=== PATIENT | male | born 1955 | race Caucasian/White ===

== ENCOUNTER 2017-09-24 04:55 | Day surgery (SDC) | payer MEDICARE ==
[2017-09-23 13:35] LABS: BASOPHILS 0.2 % (0-2); EOSINOPHILS 3.4 % (0-7); HEMATOCRIT 48.5 % (42.0-54.0); HEMOGLOBIN 16.9 g/dL (13.5-17.5); IMMATURE GRANULOCYTES 0.4 % (0-5); MCHC 34.8 g/dL (31.0-37.0); MCV 94.7 fL (80.0-100.0); MEAN PLATELET VOLUME 9.9 fL (7.4-10.4); MONOCYTES 9.2 % (2-11); NEUTROPHILS 58.8 % (40-80); PLATELET COUNT 160 10x3/uL (130-400); RBC 5.12 10x6/uL (4.20-6.10); RDW 13.3 % (11.5-14.5); WBC 9.4 10x3/uL (4.8-10.8)
[2017-09-23 13:45] LABS: APTT 25.8 SECONDS (22.8-39.4); INR 1.01 (0.85-1.17); PROTIME 13.1 SECONDS (11.6-15.0)
[2017-09-23 13:49] LABS: CALC OSMOLALITY 277 mosm/kg (275-300); CARBON DIOXIDE 26.5 mmol/L (21.0-32.0); CHLORIDE - SERUM 103 mmol/L (98-107); CREATININE - SERUM 0.9 mg/dL (0.6-1.3); GLUCOSE 96 mg/dL (74-106); SODIUM 139 mmol/L (136-145); UREA NITROGEN 13 mg/dL (7-18); eGFR NON AFRICAN AMERICAN > 90 mL/min (90-120)
[~2017-09-24] VITALS: Ht 185.4 cm; Wt 111.1 kg
[~2017-09-24 04:55] MED LIST: ASCORBIC ACID500 MG PO; GLUCOSAMINE HC500 MG PO; NEXIUM40 MG PO; PROTONIX40 MG PO; VITAMIN B-121000 MCG PO; ZYLOPRIM300 MG PO; [UNRECOGNIZED DRUG - OTHER] OR
[2017-09-24 05:52] VITALS: BP 154/92; Ht 185.4 cm; Wt 111.1 kg
[2017-09-24] MEDS ORDERED: PERCOCET 7.5/321 TAB PO (09:33)
[2017-09-24] MEDS ORDERED: ZOFRAN ODT4 MG/UDTAB PO (09:34)
--- NOTE | 2017-09-24 11:42 | NUR ---
1116 IV DC WITH CATHER TIP INTACT
--- NOTE | 2017-09-26 07:43 | OP ---
PATIENT NAME: IGNACIO HARRELL MEDICAL RECORD: [id number] :55 LOCATION:[facility] ADMISSION DATE: SURGEON: WILLY LEWIS DO DATE OF OPERATION: 09/24/2017 DATE OF SURGERY: 09/24/2017 PROCEDURE PERFORMED: Left shoulder arthroscopy with distal clavicle excision, subacromial decompression, mini open biceps tenodesis and rotator cuff repair. PREOPERATIVE DIAGNOSES: SLAP tear type 2, subacromial impingement, rotator cuff tear and acromioclavicular joint arthritis. POSTOPERATIVE DIAGNOSES: SLAP tear type 2, subacromial impingement, rotator cuff tear and acromioclavicular joint arthritis. INDICATIONS: Mr. Harrell is a 62-year-old male that presented to my office sometime ago with shoulder pain. He tried nonoperative treatment for a period of time including injections and he was tired of dealing with the pain. He came to me approximately a week ago and decided he wanted something done surgically, so he is aware of the risks and benefits of the procedure and verbally consented for the procedure. SURGEON: Willy Lewis DO COMPLICATIONS: None. BLOOD LOSS: Minimal. DESCRIPTION OF PROCEDURE: The patient was given a block in the preoperative area by anesthesia and taken to the operative suite, laid in supine position, given general anesthetic, then placed in the right lateral decubitus position and an axillary roll was placed on the axilla. The left arm was prepped and draped in a sterile fashion. Timeout was performed, everyone was in agreement with the correct side, site and patient. The patient was given clindamycin preoperatively. Once this was done, the shoulder joint was entered with 18-gauge spinal needle from the posterior portal and the shoulder joint itself was inflated with 60 mL of normal saline. The posterior portal was then made with an 11-blade scalpel and the trocar was entered into the shoulder joint itself. Once this was done, the camera was entered and a SLAP tear was seen as well as the rotator cuff tear. Bicep tenodesis was done. The inferior pouch of the shoulder was inspected for loose bodies, none were seen. There was a very small amount of arthritis in the shoulder joint itself. The rotator cuff tear was noted. After this inspection was done, the subscapularis tendon was inspected as well and not seen to have any complete tears. The scope was then taken out of the shoulder joint and taken to the subacromial space, debridement was done at that time. The acromion was cleaned off with the burner as well as the distal clavicle. A subacromial decompression was done at that time. Some of the acromion was removed as well as the distal clavicle opening up the AC joint at approximately 7 mm. After this was done, the anterior portal had been established previously from entering the shoulder joint in order to get the burner into do the biceps tenodesis. The distal clavicle excision was done through the anterior portal. The lateral portal had been established. Once the subacromial space was entered with an 18-gauge spinal needle, then an 11-blade scalpel. The lateral portal was then extended. The skin excision was extended OPERATIVE REPORT [id number] IGNACIO HARRELL approximately 3 cm. The deltoid fascia was carefully incised and then careful dissection was made down to the rotator cuff itself. The extensive bursa was noted and removed at that time over the tear. The tear was encountered. The greater tuberosity of the humerus was then burred down to the bleeding bone to have a good bed for healing for the rotator cuff repair and a single anchor was placed at the articular margin of the humerus. A FiberTape was used and a limb was placed anteriorly on the rotator cuff, supraspinatus as well as posteriorly and then pulled down to a lateral row having a nice rotator cuff repair that was noted and the anchor was put in. Once this was done, the wound was thoroughly irrigated and the portal sites were closed with 4-0 Monocryl inverted interrupted fashion. The deltoid fascia was closed with 0 Vicryl in a [id number] fashion and then the skin was closed with 2-0 Vicryl in an inverted interrupted fashion and a subcuticular running stitch with a 4-0 Monocryl was made. We then kathrin attention to the biceps tenodesis. An incision was made at the pec insertion and sterile dissection was made down to encounter the bicep tendon itself and the biceps tendon that had been tenotomized was removed. An Allis clamp was placed on it, was pulled out of the wound and then whipstitched with suture and then a button was placed on that suture. The drill guide was placed on the humerus and a drill hole was made into the humerus unicortical. This was done and the button was placed into that hole and then the bicep tendon was cinched down at that time, a free needle was used in one of the limbs of the sutures from the button and made through the bicep tendon as to place it on top of the humerus and tied down. Once this was tied down, the excess tendon and excess suture were cut. The wound was thoroughly irrigated and closed with 2-0 Vicryl and the skin in inverted interrupted fashion and a subcuticular stitch was ran on that part as well and Dermabond was placed over all these wounds. After this was done, Adaptic, 4 x 4s, ABD and Medipore tape were placed and the patient was placed into a Slingshot sling. The patient was awakened and taken to recovery in stable condition. TRANSINT:[id number] Voice Confirmation ID: [id number] DOCUMENT ID: [id number] WILLY LEWIS DO at 0743 CC: [id number] DICTATION DATE: 09/24/17940 NEWS CONTENT SPECIALIST: 09/24/[address] [facility] [place], [place] 09/24/17 [facility] [address] [place] [address]
== END 2017-09-24 11:45 | disposition home or self-care (01) ==
LOC: D.OPS 04:55 → D.PAN 10:15 → D.OPS 10:15
PROVIDERS: Anesthesiology
DX: S43.432A Superior glenoid labrum lesion of left shoulder, initial encounter (principal); M75.42 Impingement syndrome of left shoulder; M75.102 Unspecified rotator cuff tear or rupture of left shoulder, not specified as traumatic; M13.812 Other specified arthritis, left shoulder; Z01.812 Encounter for preprocedural laboratory examination; X58.XXXA Exposure to other specified factors, initial encounter

== ENCOUNTER → 2018-05-06 08:28 | Outpatient (CLI) | payer MEDICARE ==
[2017-09-24 05:52] VITALS: BMI 32.3
[~2018-05-06 08:28] MED LIST changes: +PERCOCET 7.5/321 TAB PO; +PRINIVIL20 MG PO; +ZOFRAN ODT4 MG/UDTAB PO
== END | disposition home or self-care (01) ==
LOC: D.RAD 08:28
DX: M25.511 Pain in right shoulder (principal); M25.512 Pain in left shoulder

== ENCOUNTER 2018-05-30 07:10 | Day surgery (SDC) | payer MEDICARE ==
[2018-05-29 11:00] LABS: HEMATOCRIT 50.9 % (42.0-54.0); HEMOGLOBIN 17.9 g/dL (13.5-17.5); MCH 32.8 pg (26.0-34.0); MCHC 35.2 g/dL (31.0-37.0); MCV 93.2 fL (80.0-100.0); MEAN PLATELET VOLUME 9.7 fL (7.4-10.4); RBC 5.46 10x6/uL (4.20-6.10); RDW 12.7 % (11.5-14.5); WBC 9.7 10x3/uL (4.8-10.8)
[~2018-05-30] VITALS: Ht 172.7 cm; Wt 113.4 kg
--- NOTE | ~2018-05-30 | OP ---
PATIENT NAME: IGNACIO BARKLEY MEDICAL RECORD: [id number] :55 LOCATION:[facility] ADMISSION DATE: SURGEON: GEO LEWIS DO DATE OF OPERATION: 05/30/2018 PROCEDURE PERFORMED: Left shoulder scope with mini open rotator cuff repair. PREOPERATIVE DIAGNOSIS: Left shoulder rotator cuff tear. POSTOPERATIVE DIAGNOSIS: Left shoulder rotator cuff tear. INDICATIONS: Mr. Barkley is a 63-year-old male who had his left shoulder rotator cuff done back in August. Approximately 8-10 weeks postop, he was cutting wood and lifting overhead and felt a pop in his shoulder and he sustained a retear of his rotator cuff, had pain since. He did try injections. Ultimately, we ended up getting an MRI with contrast that showed an 8-mm tear in the anterior cuff of the supraspinatus extending posteriorly. I had a long discussion with him and informed him that we could fix this, but he was aware that if he re-tore it could cause more problems. He knew he got back to doing things too quickly last time and we discussed that and he said he would not do that at this time. He is aware of the risks and benefits of the procedure including infection, bleeding, risk to structures including the axillary nerve, and need for further surgery, and he consented to the procedure. DESCRIPTION OF PROCEDURE: The patient received a block in the preoperative area. He was taken to the operative suite, laid in the right lateral recumbent position, given 900 mg of clindamycin preoperatively. After this was done, the left shoulder was prepped and draped in a sterile fashion. A timeout was performed. Everyone was in agreement with correct site, side, and patient. He had an LMA placed prior to prepping and draping. Once he was prepped and draped, an 18-gauge needle was used to find the joint and this was inflated with 60 mL normal saline. Then, the 11 blade scalpel was used to create the posterior portal and the trocar was then entered into the joint. After the trocar was entered into the joint, the camera was entered and careful inspection of the joint was made. The tear was seen at the supraspinatus anterior margin on the articular side. The infraspinatus appeared to be intact as well as the subscapularis. The bicep was previously tenodesed in the previous surgery. I then went to the subacromial space and the tear was seen there as well. The acromion was cleaned off to check for spurs as well as the distal clavicle that may have formed, but none were there and then the tear was encountered. It was cleaned up with a shaver and then we opened. The anterior portal was established when we were in the shoulder joint with an 11 blade and the trocar and then the lateral portal as well. Then, the open procedure began with a 15 blade over the lateral portal. Careful dissection was made down to the deltoid fascia. Deltoid fascia was incised. The deltoid was then bluntly and then the tear was encountered. Once the tear was encountered, the shaver was used to decorticate the greater tuberosity of the humerus just lateral to the articular margin to get a bleeding surface for healing. Two anchors were placed, 1 anterior and 1 posterior approximately a cm apart. The sutures were placed through the rotator cuff anteriorly and posteriorly with a scorpion. Once the scorpion was used, 2 of the sutures were tied down to get medial compression and then all the anchors were brought laterally and anterior and posterior anchor were brought from the lateral row compressing the cuff nicely. This was done under direct visualization. The wound was then irrigated and closed. The deltoid fascia was closed with 0 Vicryl and then the 2-0 Vicryl was OPERATIVE REPORT [id number] IGNACIO BARKLEY used in inverted interrupted to close the skin and 4-0 Monocryl ran on the skin and then Dermabond was placed on the skin. Telfa and Tegaderm were then placed over each of the sites. The patient was awakened and taken to recovery in stable condition. COMPLICATIONS: None. BLOOD LOSS: Minimal. TRANSINT:[id number] Voice Confirmation ID: [id number] DOCUMENT ID: [id number] GEO LEWIS DO at 1223 CC: [id number] DICTATION DATE: 05/30/18 1121 COLD HEADER OPERATOR: 05/30/18 1145 [facility] [address] [place] [address]
[2018-05-30 08:35] VITALS: BP 148/93; Ht 172.7 cm; Wt 113.4 kg
[2018-05-30] MEDS ORDERED: PERCOCET 7.5/321 TAB PO (09:11)
[2018-05-30] MEDS ORDERED: ZOFRAN ODT4 MG/UDTAB PO (09:12)
== END 2018-05-30 13:00 | disposition home or self-care (01) ==
LOC: D.OPS 07:10 → D.PAN 07:30 → D.OPS 09:30
PROVIDERS: Anesthesiology
DX: S46.012A Strain of muscle(s) and tendon(s) of the rotator cuff of left shoulder, initial encounter (principal); X58.XXXA Exposure to other specified factors, initial encounter; Z01.812 Encounter for preprocedural laboratory examination

== ENCOUNTER 2018-10-03 05:26 | Day surgery (SDC) | payer MEDICARE ==
[2018-10-03 06:37] LABS: APTT 27.9 SECONDS (22.8-39.4)
[2018-10-03 06:38] LABS: INR 0.99 (0.85-1.17); PROTIME 12.6 SECONDS (11.6-15.0)
== END 2018-10-03 12:45 | disposition home or self-care (01) ==
LOC: D.OPS 05:26
PROVIDERS: Anesthesiology
DX: M75.101 Unspecified rotator cuff tear or rupture of right shoulder, not specified as traumatic (principal); S43.431A Superior glenoid labrum lesion of right shoulder, initial encounter; M75.41 Impingement syndrome of right shoulder; M13.811 Other specified arthritis, right shoulder; Z01.812 Encounter for preprocedural laboratory examination